=== PATIENT | female | born 1985 | race African-American/Black ===

== ENCOUNTER 2017-10-18 15:29 | Emergency (ER) | payer OTHER ==
[~2017-10-18] VITALS: Ht 162.6 cm; Wt 104.3 kg
[~2017-10-18 15:29] MED LIST: NAPROSYN500 MG PO; TRAMADOL 50 MG50 MG PO
[2017-10-18] MEDS ORDERED: TRAMADOL 50 MG50 MG PO (16:13)
[2017-10-18] MEDS ORDERED: PREDNISONE 20 M20 MG PO (16:13)
[2017-10-18] MEDS ORDERED: TESSALON PERLE100 MG PO (16:13)
== END 2017-10-18 17:20 | disposition home or self-care (01) ==
LOC: ER 15:29
DX: M94.0 Chondrocostal junction syndrome [Tietze] (principal); M54.6 Pain in thoracic spine; J06.9 Acute upper respiratory infection, unspecified

== ENCOUNTER 2018-10-07 12:44 | Emergency (ER) | payer BC ==
[~2018-10-07] VITALS: Ht 162.6 cm; Wt 108.9 kg
[~2018-10-07 12:44] MED LIST changes: +PREDNISONE 20 M20 MG PO; +TESSALON PERLE100 MG PO
[2018-10-07] MEDS ORDERED: AMOXICILLIN 50500 MG PO (14:56)
[2018-10-07] MEDS ORDERED: ZOFRAN ODT4 MG PO (14:56)
[2018-10-07 15:30] VITALS: BP 133/88
== END 2018-10-07 16:07 | disposition home or self-care (01) ==
LOC: ER 12:44
DX: J02.9 Acute pharyngitis, unspecified (principal); R19.7 Diarrhea, unspecified